=== PATIENT | male | born 1955 | race Caucasian/White ===

== ENCOUNTER 2018-03-03 20:53 | Emergency (ER) | payer OTHER, MEDICAID ==
[~2018-03-03] VITALS: Ht 180.3 cm; Wt 122.5 kg
[~2018-03-03 20:53] MED LIST: AMOX1TAB11 PO; HYDR-2761 PO; LISI-334 PO; LISI-338 PO; QUET300T6 PO; RIFA550T4 PO; TAMS0.4C2 PO
--- NOTE | 2018-03-03 21:25 | PHYS DOC ---
Past Medical History Past Medical History: Bipolar, Diabetes-Type II, Hypertension, Kidney Stone, Liver Disease Additional Past Medical Histor: schizophrenia, chronic pain Past Surgical History: No Surgical History Alcohol Use: None Drug Use: None Adult General Chief Complaint Chief Complaint: NAUSEA/VOMITING/DIARRHA HPI HPI Patient is a 62 year old male with history of diabetes type 2, hypertension, liver disease, who presents today with nausea and vomiting that began 2 hours prior to coming to the ED. Patient states he had meals on wheels around none. He states the food did not look right. He states he later developed vomiting. Patient denies any diarrhea. Denies any abdominal pain. Review of Systems Review of Systems Constitutional: Denies fever or chills [] Eyes: Denies change in visual acuity, redness, or eye pain [] HENT: Denies nasal congestion or sore throat [] Respiratory: Denies cough or shortness of breath [] Cardiovascular: No additional information not addressed in HPI [] GI: Reports vomiting and nausea. Denies abdominal pain,bloody stools or diarrhea [] : Denies dysuria or hematuria [] Musculoskeletal: Denies back pain or joint pain [] Integument: Denies rash or skin lesions [] Neurologic: Denies headache, focal weakness or sensory changes [] All other systems were reviewed and found to be within normal limits, except as documented in this note. Current Medications Current Medications Current Medications Medications (Trade) Dose Ordered Sig/Jairo Start Time Stop Time Status Last Admin Dose Admin Famotidine (Pepcid Vial) 20 mg 1X ONCE 03/03/18 21:45 03/03/18 21:46 DC 03/03/18 21:32 20 MG Info (CONTRAST GIVEN -- Rx MONITORING) 1 each PRN DAILY PRN 03/03/18 22:30 03/05/18 22:29 Iohexol (Omnipaque 300 Mg/ml) 75 ml 1X ONCE 03/03/18 22:30 03/03/18 22:31 DC 03/03/18 22:28 75 ML Ondansetron HCl (Zofran) 4 mg 1X ONCE 03/03/18 21:45 03/03/18 21:46 DC 03/03/18 21:32 4 MG Sodium Chloride 1,000 ml @ 1,000 mls/hr 1X ONCE 03/03/18 21:30 03/03/18 22:29 DC 03/03/18 21:30 1,000 MLS/HR Allergies Allergies Allergies Coded Allergies Type Severity Reaction Last Updated Verified No Known Drug Allergies 08/05/15 No Physical Exam Physical Exam Constitutional: Well developed, well nourished, no acute distress, non-toxic appearance. [] HENT: Normocephalic, atraumatic, bilateral external ears normal, oropharynx moist, no oral exudates, nose normal. [] Eyes: PERRLA, EOMI, conjunctiva normal, no discharge. [] Neck: Normal range of motion, no tenderness, supple, no stridor. [] Cardiovascular:Heart rate regular rhythm, no murmur [] Lungs & Thorax: Bilateral breath sounds clear to auscultation [] Abdomen: Rounded abdomen. Bowel sounds normal, soft, no tenderness, no masses, no pulsatile masses. Patient is actively vomiting upon arrival Skin: Warm, dry, no erythema, no rash. [] Back: No tenderness, no CVA tenderness. [] Extremities: No tenderness, no cyanosis, no clubbing, ROM intact, no edema. [] Neurologic: Alert and oriented X 3, normal motor function, normal sensory function, no focal deficits noted. [] Psychologic: Affect normal, judgement normal, mood normal. [] Current Patient Data Vital Signs Vital Signs Date Time Temp Pulse Resp B/P (MAP) Pulse Ox O2 Delivery O2 Flow Rate FiO2 03/03/18 21:28 99 114/67 (83) 95 Room Air 03/03/18 20:56 97.8 16 97.8 Lab Values Laboratory Tests Test 03/03/18 21:00 White Blood Count 5.4 x10^3/uL (4.0-11.0) Red Blood Count 4.85 x10^6/uL (4.30-5.70) Hemoglobin 15.6 g/dL (13.0-17.5) Hematocrit 44.1 % (39.0-53.0) Mean Corpuscular Volume 91 fL (79-100) Mean Corpuscular Hemoglobin 32 pg (25-35) Mean Corpuscular Hemoglobin Concent 35 g/dL (31-37) Red Cell Distribution Width 14.6 % (11.5-14.5) H Platelet Count 72 x10^3/uL (140-400) L Neutrophils (%) (Auto) 61 % (31-73) Lymphocytes (%) (Auto) 29 % (24-48) Monocytes (%) (Auto) 8 % (0-9) Eosinophils (%) (Auto) 2 % (0-3) Basophils (%) (Auto) 1 % (0-3) Neutrophils # (Auto) 3.3 x10^3uL (1.8-7.7) Lymphocytes # (Auto) 1.6 x10^3/uL (1.0-4.8) Monocytes # (Auto) 0.4 x10^3/uL (0.0-1.1) Eosinophils # (Auto) 0.1 x10^3/uL (0.0-0.7) Basophils # (Auto) 0.0 x10^3/uL (0.0-0.2) Sodium Level 140 mmol/L (136-145) Potassium Level 3.3 mmol/L (3.5-5.1) L Chloride Level 102 mmol/L (98-107) Carbon Dioxide Level 24 mmol/L (21-32) Anion Gap 14 (6-14) Blood Urea Nitrogen 10 mg/dL (8-26) Creatinine 0.9 mg/dL (0.7-1.3) Estimated GFR (Cockcroft-Gault) 85.5 BUN/Creatinine Ratio 11 (6-20) Glucose Level 169 mg/dL (70-99) H Calcium Level 8.8 mg/dL (8.5-10.1) Total Bilirubin 1.4 mg/dL (0.2-1.0) H Aspartate Amino Transferase (AST) 35 U/L (15-37) Alanine Aminotransferase (ALT) 39 U/L (16-63) Alkaline Phosphatase 127 U/L (46-116) H Troponin I Quantitative < 0.017 ng/mL (0.000-0.055) Total Protein 7.6 g/dL (6.4-8.2) Albumin 3.4 g/dL (3.4-5.0) Albumin/Globulin Ratio 0.8 (1.0-1.7) L Lipase 143 U/L (73-393) Ethyl Alcohol Level < 10 mg/dL (0-10) Laboratory Tests 03/03/18 21:00 Laboratory Tests 03/03/18 21:00 EKG EKG [] Radiology/Procedures Radiology/Procedures []PROCEDURE: CT ABD PELV W/ IV CONTRST ONLY Examination: CT ABD PELV W/ IV CONTRST ONLY History: n/v 2 hours station captain, [id number] 75ml, prior sent, [facility] error occurred during scan, Comparison/Correlation: 10/13/2015 CT abdomen and pelvis with IV contrast Findings: Axial images of the abdomen and pelvis were obtained following IV contrast. Streak artifact at the mid abdominal level limits evaluation on a few consecutive axial images. Sagittal and coronal reformatted images provided. Nodular contour of the liver compatible with hepatic cirrhosis or fibrotic process noted. Within the right hepatic lobe segment 8, there is interval development of a 1.9 cm diameter low-attenuation lesion compared to previous examination. Recanalized umbilical vein again seen. Spleen is enlarged measuring 14.6 cm longitudinal. No focal splenic mass. Cholelithiasis again seen. No biliary dilatation. No enlarged abdominal or pelvic lymph nodes. Urinary bladder is unremarkable. Prostatomegaly seen. Impression: Hepatic cirrhosis and associated portal hypertension with splenomegaly. There is a new hepatic lesion present likely representing hepatoma in this patient with hepatic cirrhosis. Correlate with any underlying known malignancies as metastatic lesion may alternatively account for this finding. Cholelithiasis. Electronically signed by: Bradley Ortiz MD (03/03/2018 11:04 PM) [facility] DICTATED and SIGNED BY: BRADLEY ORTIZ MD DATE: 03/03/18 9535 Course & Med Decision Making Course & Med Decision Making Pertinent Labs and Imaging studies reviewed. (See chart for details) This is a 62-year-old male patient presenting to the ED today with vomiting and nausea that began after eating food provided by [employer] today. Denies any abdominal pain or diarrhea. CBC with normal WBC, platelet count is 72, patient has history of liver cancer, looking back at his labs previously, this is around his baseline. CMP with no acute findings. CT of the abdomen and pelvic -Hepatic cirrhosis and associated portal hypertension with splenomegaly. -There is a new hepatic lesion present likely representing hepatoma in this patient with hepatic cirrhosis. Correlate with any underlying known malignancies as metastatic lesion may alternatively account for this finding. -Cholelithiasis. Patient is in no distress. He was given IV fluids, nausea medicine. He has no pain. His vomiting has stopped. He was given CT results. He states he has known history of liver cancer and is getting treated by Dr. Dallas. He himself is requesting to be discharged. Given prescription for Zofran. Follow-up with his PCP in the course of this week. Alejandro Disclaimer Alejandro Disclaimer This electronic medical record was generated, in whole or in part, using a voice recognition dictation system. Departure Departure Impression: Primary Impression: Cholelithiasis Additional Impressions: Hepatic lesion Nausea and vomiting Disposition: HOME, SELF-CARE Condition: STABLE Referrals: KATTY PERDOMO MD (PCP) follow up in the course of this week Patient Instructions: Cholelithiasis, [id number], Nausea and Vomiting, Easy- to-Read Additional Instructions: You were evaluated in the emergency room for nausea and vomiting. You were noted to have gallbladder disease and lesions on your liver which you stated you are aware off. Continue following up with your own doctor. Push fluids. Take the prescribed medicines as needed for nausea or vomiting. Come back to the ED at any point symptoms worsen. Scripts Ondansetron Hcl (ZOFRAN) 4 Mg Tablet 1 TAB PO Q6HRS, #20 TAB Prov: PIERRE STEPHENS [employer]MENT INSPECTOR 03/03/18 Problem Qualifiers Primary Impression: Cholelithiasis Cholelithiasis location: gallbladder Cholecystitis presence: without cholecystitis Biliary obstruction: without biliary obstruction Qualified Codes: K80.20 - Calculus of gallbladder without cholecystitis without obstruction Additional Impressions: Nausea and vomiting Vomiting type: unspecified Vomiting Intractability: non-intractable Qualified Codes: R11.2 - Nausea with vomiting, unspecified PIERRE STEPHENS [employer]GRAPH[employer] EQUIPMENT INSPECTOR Mar 03, 2018 21:25
[2018-03-03] MEDS ORDERED: IV NORMAL SALINE 1000ML BAG 1,000 ML IV ONE (21:30)
[2018-03-03] MEDS ORDERED: ONDANSETRON PF 4 MG/2 ML VIAL. IV ONE (21:45)
[2018-03-03] MEDS ORDERED: FAMOTIDINE 20 MG/2 ML VIAL IVP ONE (21:45)
[2018-03-03 22:09] LABS: HEMATOCRIT 44.1 % (39.0-53.0); HEMOGLOBIN 15.6 g/dL (13.0-17.5); MEAN CORPUSCULAR HEMOGLOBIN 32 pg (25-35); MEAN CORPUSCULAR HGB CONC 35 g/dL (31-37); MEAN CORPUSCULAR VOLUME 91 fL (79-100); RED BLOOD COUNT 4.85 x10^6/uL (4.30-5.70); RED CELL DISTRIBUTION WIDTH 14.6 % (11.5-14.5)
[2018-03-03 22:10] LABS: BASO % 1 % (0-3); EOS # 0.1 x10^3/uL (0.0-0.7); EOS % 2 % (0-3); LYMPH # 1.6 x10^3/uL (1.0-4.8); LYMPH % 29 % (24-48); MONO # 0.4 x10^3/uL (0.0-1.1); MONO % 8 % (0-9); NEUT # 3.3 x10^3uL (1.8-7.7); NEUT % 61 % (31-73)
[2018-03-03 22:11] LABS: PLATELET COUNT 72 x10^3/uL (140-400)
[2018-03-03 22:14] LABS: WHITE BLOOD COUNT 5.4 x10^3/uL (4.0-11.0)
[2018-03-03 22:15] LABS: ALBUMIN 3.4 g/dL (3.4-5.0); ALBUMIN/GLOBULIN RATIO 0.8 (1.0-1.7); CALCIUM 8.8 mg/dL (8.5-10.1); CREATININE 0.9 mg/dL (0.7-1.3); GFR 85.5; POTASSIUM 3.3 mmol/L (3.5-5.1); TOTAL BILIRUBIN 1.4 mg/dL (0.2-1.0)
[2018-03-03 22:17] LABS: TOTAL PROTEIN 7.6 g/dL (6.4-8.2)
[2018-03-03] MEDS ORDERED: CONTRAST GIVEN. MC PRN (22:30)
[2018-03-03] MEDS ORDERED: IOHEXOL 300 MG/ML 100ML VIAL. IV ONE (22:30)
--- NOTE | 2018-03-03 23:08 | RAD ---
Examination: CT ABD PELV W/ IV CONTRST ONLY History: n/v 2 hours entrepreneur, [id number] 75ml, prior sent, ARC error occurred during scan, Comparison/Correlation: 10/13/2015 CT abdomen and pelvis with IV contrast Findings: Axial images of the abdomen and pelvis were obtained following IV contrast. Streak artifact at the mid abdominal level limits evaluation on a few consecutive axial images. Sagittal and coronal reformatted images provided. Nodular contour of the liver compatible with hepatic cirrhosis or fibrotic process noted. Within the right hepatic lobe segment 8, there is interval development of a 1.9 cm diameter low-attenuation lesion compared to previous examination. Recanalized umbilical vein again seen. Spleen is enlarged measuring 14.6 cm longitudinal. No focal splenic mass. Cholelithiasis again seen. No biliary dilatation. No enlarged abdominal or pelvic lymph nodes. Urinary bladder is unremarkable. Prostatomegaly seen. Impression: Hepatic cirrhosis and associated portal hypertension with splenomegaly. There is a new hepatic lesion present likely representing hepatoma in this patient with hepatic cirrhosis. Correlate with any underlying known malignancies as metastatic lesion may alternatively account for this finding. Cholelithiasis. Electronically signed by: Bradley Rai MD (03/03/2018 11:04 PM) [facility]
[2018-03-03 23:38] VITALS: BP 116/74
[2018-03-03] MEDS ORDERED: ONDA4TAB7 PO (23:59)
== END 2018-03-04 00:03 | disposition home or self-care (01) ==
LOC: ER 20:53
DX: K80.20 Calculus of gallbladder without cholecystitis without obstruction (principal); R11.2 Nausea with vomiting, unspecified; K76.9 Liver disease, unspecified; E11.9 Type 2 diabetes mellitus without complications; I10 Essential (primary) hypertension; F31.9 Bipolar disorder, unspecified; G89.29 Other chronic pain; F20.9 Schizophrenia, unspecified
CPT/HCPCS: 36415; 74177; 80053; 83690; 84484; 85025; 96361; 96374; 96375; 99285; G0480; J2405; J3490; J7030; Q9967; 99284-25